=== PATIENT | male | born 1980 | race Caucasian/White ===

== ENCOUNTER 2021-01-19 18:20 | Emergency (ER) | payer BC ==
[2021-01-19 18:35] LABS: HEMATOCRIT 45.4 % (42.0-52.0); HEMOGLOBIN 15.6 g/dL (13.5-18.0); MEAN CELL VOLUME 89 fl (78-100); MEAN CORPUSCULAR HEMOGLOBIN 31 pg (27-31); MEAN CORPUSCULAR HGB CONC 34 g/dL (33-37); MEAN PLATELET VOLUME 9.5 fl (7.4-10.4); PLATELET COUNT 317 K/mm3 (130-400); RED CELL DISTRIBUTION WIDTH 12.4 % (11.5-14.5); WHITE BLOOD COUNT 15.7 K/mm3 (4.8-10.8)
[2021-01-19] MEDS ORDERED: TOPAMAX25 MG PO (18:40)
[2021-01-19 18:47] LABS: ALBUMIN 4.8 g/dL (3.5-5.0); POTASSIUM 3.7 mmol/L (3.5-5.1)
[2021-01-19 18:48] LABS: CALCIUM 9.1 mg/dL (8.3-10.5)
[2021-01-19 18:50] LABS: TOTAL PROTEIN 7.4 g/dL (6.4-8.3)
[2021-01-19 18:51] LABS: TOTAL BILIRUBIN 0.7 mg/dL (0.2-1.2)
[2021-01-19 18:54] LABS: LYMPHOCYTE 6 % (20-51); MONOCYTE 5 % (3-10); NEUTROPHILS 89 % (42-75)
[2021-01-19 20:00] VITALS: BP 111/86
== END 2021-01-19 20:00 | disposition short-term general hospital (02) ==
LOC: ED 18:20
PROVIDERS: Nurse Practitioner
DX: K35.80 Unspecified acute appendicitis (principal)
CPT/HCPCS: J2270; J2405; J7030; Q9967